=== PATIENT | female | born 1990 | race Two or more races ===

== ENCOUNTER 2025-07-09 22:30 | Emergency (ER) | payer OTHER ==
[~2025-07-09] VITALS: Ht 167.6 cm; Wt 67.1 kg
[2025-07-09 22:41] VITALS: BP 109/77; TEMP 98.9; O2SAT 97
[2025-07-09] MEDS ORDERED: CIPR500T5 PO (23:29)
[2025-07-09] MEDS ORDERED: CEPH-570 PO (23:29)
[2025-07-09] MEDS: CIPROFLOXACIN HCL 250 MG TABLET PO ONE (23:43)
[2025-07-09] MEDS: CEPHALEXIN MONOHYDRATE 500 MG CAPSULE PO ONE (23:43)
== END 2025-07-09 23:55 | disposition home or self-care (01) ==
LOC: ER 22:31
DX: S00.451A Superficial foreign body of right ear, initial encounter (principal); Z90.49 Acquired absence of other specified parts of digestive tract; W45.8XXA Other foreign body or object entering through skin, initial encounter; Y93.89 Activity, other specified; Y92.89 Other specified places as the place of occurrence of the external cause; Y99.8 Other external cause status
CPT/HCPCS: 70140-TC